=== PATIENT | male | born 1965 | race Caucasian/White ===

== ENCOUNTER 2016-11-05 14:54 | Inpatient (IN) | payer BC ==
[~2016-11-05] VITALS: Ht 160 cm; Wt 91.6 kg
[~2016-11-05 14:54] MED LIST: ATOR40TA PO; CLON1 PO; DULO20 PO; FENO134C PO; LISI-586 PO; LORTA10 PO
[2016-12-04] MEDS ORDERED: BUPIVACAINE HCL PF 0.5% 30 ML VIAL NERV BLOCK ONE (08:44)
--- NOTE | 2016-12-04 09:00 | MH ---
cc: ROZ THOMPSON M.D. DATE OF ADMISSION 12/04/2016 DIAGNOSIS End stage post-traumatic osteoarthritis left knee. PROPOSED SURGERY Left total knee replacement arthroplasty. ALLERGIES None MEDICATIONS 1. He takes medications for high blood pressure and cholesterol. 2. He has been taking Hydrocodone as needed for pain. PAST SURGICAL HISTORY 1. ACL reconstruction left knee 20 years ago and he has had problems with the since then. 2. Arthroscopic rotator cuff repair right shoulder about 4-5 years ago. 3. Chronic back and neck pain. PAST HISTORY 1. History of anxiety. 2. High blood pressure 3. Arthritis 4. Low back pain 5. 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 The patient now going to undergo total knee replacement arthroplasty. The diagnosis, the treatment, the prognosis and the potential risks, hazards, complications and expected results have all been discussed with the patient. Informed consent obtained. No guarantees made. Details of informed consent documented on the hospital office record. PHYSICAL EXAM Physical examination reveals that he is 5 foot 3-1/2 inches tall and 185 pounds. VITAL SIGNS: Stable. HEAD, EYES, EARS, NOSE, AND THROAT: The head is normocephalic. Pupils react to light. Face symmetrical. HEART: Regular rhythm. No murmurs. LUNGS: Clear to auscultation. ABDOMEN: Soft and supple. EXTREMITIES: Left knee reveals some faint scars of previous arthroscopic ACL reconstruction. There is obvious varus deformity with tenderness over the medial joint line. No crepitus noted. No obvious instability. He has about 120 degrees of flexion. There is no neurovascular deficit in the left foot. X-rays revealed that he has mental interference screws which most likely would have to be removed at the time of surgery. Possible difficulties with doing that discussed with the patient. MD RENE Calvo/ADAM /8:47 AM /8:54 AM
[2016-12-04] MEDS ORDERED: METOPROLOL TARTRATE 25 MG TAB PO PRN (10:00)
[2016-12-04] MEDS ORDERED: SODIUM CHLORID 0.9% 500 ML IV PRN (10:00)
[2016-12-04] MEDS ORDERED: INSULIN HUMAN REGULAR 1,000 UNITS/10 ML VIAL SQ PRN (10:00)
[2016-12-04] MEDS ORDERED: CHLORHEXIDINE GLUCONATE 2 % 1 PACK (2 CLOTHS) TOPICAL PRN (10:00)
[2016-12-04] MEDS ORDERED: LACTATED RINGER'S 1000 ML IV PRN (10:00)
[2016-12-04] MEDS ORDERED: POVIDONE IODINE 5% (ANTISEPSIS KIT) 4 APPLICATIONS EACH NARE PRN (10:00)
[2016-12-04] MEDS ORDERED: POVIDONE IODINE 7.5% SCRUB 118 ML BOTTLE TOPICAL SCH (10:15)
[2016-12-04] MEDS ORDERED: ceFAZolin 2 GM PREMIX 50 ML IV SCH (10:15)
[2016-12-04] MEDS ORDERED: VANCOMYCIN 1250 MG/NS 250 ML (for 70-84 kg) IV SCH ×2 (10:15)
[2016-12-04 11:02] VITALS: BP 108/67; PULSE 86; RESP 20; TEMP 99.3; O2SAT 97
[2016-12-04] MEDS ORDERED: FENO134C PO (11:11)
[2016-12-04] MEDS ORDERED: HYDR-3583 PO (11:11)
[2016-12-04] MEDS ORDERED: CLON1TAB PO (11:11)
[2016-12-04] MEDS ORDERED: LISI20TA PO (11:11)
[2016-12-04] MEDS ORDERED: ATOR40TA16 PO (11:11)
[2016-12-04] MEDS ORDERED: DICL75TA PO (11:12)
[2016-12-04] MEDS ORDERED: TRANEXAMIC ACID INJ 780 MG in SODIUM CHLORIDE 0.9% INJ 100 ML IV SCH ×2 (11:30→14:30)
[2016-12-04] MEDS ORDERED: ACETAMINOPHEN 1000 MG/100 ML VIAL IV ONE (11:50)
[2016-12-04] MEDS ORDERED: NEOSTIGMINE 3 MG/3 ML SYR IV ONE (12:00)
[2016-12-04] MEDS ORDERED: ePHEDrine/NS 25 MG/5 ML SYR IV ONE (12:00)
[2016-12-04] MEDS ORDERED: PROPOFOL 200 MG/20 ML AMP IV ONE (12:00)
[2016-12-04] MEDS ORDERED: ONDANSETRON HCL 4 MG/2 ML VIAL IV PUSH ONE (12:00)
[2016-12-04] MEDS ORDERED: LACTATED RINGER'S 1000 ML INJ 2,000 ML IV ONE (12:00)
[2016-12-04] MEDS ORDERED: ROPIVACAINE PERI-ARTICULAR INJECTION. P-ARTICULR SCH ×5 (12:00)
[2016-12-04] MEDS ORDERED: PHENYLEPH/NS 1000 MCG/10 ML SYR IV ONE (12:00)
[2016-12-04] MEDS ORDERED: DEXAMETHASONE SOD PHOS 4 MG/ML VIAL ONE (12:07)
[2016-12-04] MEDS ORDERED: MIDAZOLAM HCL 2 MG/2 ML VIAL ONE (12:07)
[2016-12-04] MEDS ORDERED: fentaNYL CITRATE 250 MCG/5 ML AMP ONE ×2 (12:10→16:40)
[2016-12-04] MEDS ORDERED: GENTAMICIN SULFATE 80 MG/2 ML VIAL ONE (12:12)
[2016-12-04] MEDS ORDERED: TOBRAMYCIN SULFATE 1200 MG VIAL ONE (12:12)
[2016-12-04] MEDS ORDERED: HYDROmorphone HCL PF 2 MG/ML VIAL ONE (14:51)
[2016-12-04] MEDS ORDERED: TOBRAMYCIN SULFATE 1200 MG VIAL OTHER ONE (15:19)
[2016-12-04] MEDS ORDERED: TRANEXAMIC ACID INJ 0 MG in SODIUM CHLORIDE 0.9% INJ 100 ML IV SCH (16:00)
[2016-12-04] MEDS ORDERED: MORPHINE SULFATE 30 MG/30 ML PCA IV SCH (16:00)
[2016-12-04] MEDS ORDERED: NALOXONE HCL 0.4 MG/ML AMP IV PRN (16:00)
[2016-12-04] MEDS ORDERED: ACETAMINOPHEN/HYDROcodone 325 MG/5 MG TAB PO PRN (16:00)
[2016-12-04] MEDS ORDERED: SODIUM CHLORIDE 0.9% FLUSH 5 ML FLUSH IVF PRN (16:00)
[2016-12-04] MEDS ORDERED: TEMAZEPAM 15 MG CAP PO PRN (16:00)
[2016-12-04] MEDS ORDERED: diphenhydrAMINE HCL 50 MG/ML VIAL IV PRN (16:00)
[2016-12-04] MEDS ORDERED: ONDANSETRON HCL 4 MG/2 ML VIAL IVP PRN (16:00)
[2016-12-04] MEDS ORDERED: Post-op Orders (for Pharmacy) MISC XX ONE (16:00)
[2016-12-04] MEDS ORDERED: ENOX30P SQ (16:08)
[2016-12-04] MEDS ORDERED: HYDR-3516 PO (16:08)
--- NOTE | 2016-12-04 16:09 | HHI.FF ---
Face to Face Verification Diagnosis: (1) Total knee replacement status Physical Therapy Gait training Left LE Weight Bearing: WB as tolerated Nursing Nursing: Jodie teaching, Dressing changes Dressing Changes: Daily dressing change, Coverderm/Primapore I have seen patient Elroy Portillo on 12/04/16. My clinical findings support the need for the requested home health care services because: Limited ability to care for self Injectable med education/admin I certify that my clinical findings support that this patient is homebound because: Unsafe to leave home unassisted Unable to use public transportation Koby Romero MD Dec 04, 2016 16:09
[2016-12-04] MEDS: SODIUM CHLOR 0.9% 1000 ML INJ 1,000 ML IV SCH (16:30)
[2016-12-04] MEDS ORDERED: DO NOT ADM ANY ANTICOAGULANT DRUGS PRN (16:45)
--- NOTE | 2016-12-04 16:58 | RADRPT ---
EXAM DATE/TIME: 12/04/2016 16:37 [facility] COMPARISON: No previous studies available for comparison. INDICATIONS : Post op total left knee replacement. MEDICAL HISTORY : None. SURGICAL HISTORY : Previous left knee surgery. ENCOUNTER: Initial ACUITY: 1 day PAIN SCORE: Non-responsive. LOCATION: Left knee. FINDINGS: 2 views of the knee show a total knee prosthesis in good position. No fracture or dislocation is obse rved. Soft tissue swelling is noted. Surgical drain noted. Anchoring screw from presumed prior crucia te ligament repair. CONCLUSION: Total knee arthroplasty in good position. Jeet Perez Jr., MD on December 04, 2016 at 16:52 Board Certified Radiologist. This report was verified electronically.
[2016-12-04] MEDS: KETOROLAC TROMETHAMINE 30 MG/ML (IVP) VIAL IVP SCH (17:24)
[2016-12-04] MEDS: ceFAZolin 2 GM PREMIX 50 ML IV SCH (17:50)
[2016-12-04] MEDS ORDERED: ceFAZolin INJ 2 MG in SODIUM CHLORIDE 0.9% INJ 100 ML IV SCH (18:00)
[2016-12-04] MEDS: ACETAMINOPHEN/HYDROcodone 325 MG/5 MG TAB PO PRN (19:00)
[2016-12-04] MEDS: SODIUM CHLORIDE 0.9% FLUSH 5 ML FLUSH IVF SCH (20:48)
[2016-12-04 22:39] VITALS: BP 105/66; PULSE 80; RESP 18; TEMP 97; O2SAT 96
[2016-12-04] MEDS: ACETAMINOPHEN 1000 MG/100 ML VIAL IV SCH (22:58)
[2016-12-04] MEDS: clonazePAM 1 MG TAB PO SCH (22:58)
[2016-12-04] MEDS: CELECOXIB 200 MG CAP PO SCH (22:59)
[2016-12-04] MEDS: ATORVASTATIN 40 MG TAB PO SCH (22:59)
[2016-12-05] MEDS: KETOROLAC TROMETHAMINE 30 MG/ML (IVP) VIAL IVP SCH ×3 (01:13→16:30)
[2016-12-05] MEDS: SODIUM CHLOR 0.9% 1000 ML INJ 1,000 ML IV SCH ×3 (01:14→21:56)
[2016-12-05] MEDS: ceFAZolin 2 GM PREMIX 50 ML IV SCH ×2 (01:14→10:50)
[2016-12-05] MEDS ORDERED: VANCOMYCIN INJ 1.25 GM in SODIUM CHLOR 0.9% 250 ML INJ 250 ML IV SCH (03:00)
[2016-12-05] MEDS ORDERED: PCA - TOTAL MG MORPHINE DELIVERED PER SHIFT IV ONE ×2 (03:00→08:00)
[2016-12-05 04:00] VITALS: BP 100/61; PULSE 78; RESP 19; TEMP 96.6; O2SAT 98
[2016-12-05 07:58] VITALS: BP 104/59; PULSE 84; RESP 19; TEMP 96.9; O2SAT 100
[2016-12-05] MEDS: HYDROCHLOROTHIAZIDE 25 MG TAB PO SCH (09:00)
[2016-12-05] MEDS: SODIUM CHLORIDE 0.9% FLUSH 5 ML FLUSH IVF SCH ×2 (09:00→20:38)
[2016-12-05] MEDS ORDERED: NON-FORMULARY DRUG (Lisinopril-Hctz 1 TAB) PO SCH (09:00)
[2016-12-05] MEDS: LISINOPRIL 20 MG TAB PO SCH (09:00)
[2016-12-05 09:12] LABS: HEMATOCRIT 30.9 % (39.0-51.0); REVIEW FLAG FINAL
[2016-12-05] MEDS: FENOFIBRATE 145 MG TAB PO SCH (09:20)
[2016-12-05] MEDS: clonazePAM 1 MG TAB PO SCH ×2 (09:20→20:36)
[2016-12-05] MEDS: ACETAMINOPHEN 1000 MG/100 ML VIAL IV SCH ×2 (09:33→21:48)
[2016-12-05] MEDS: ACETAMINOPHEN/HYDROcodone 325 MG/5 MG TAB PO PRN ×4 (09:33→21:49)
[2016-12-05 09:44] LABS: BICARBONATE 22.4 MEQ/L (21.0-32.0); POTASSIUM 4.3 MEQ/L (3.5-5.1)
[2016-12-05 11:55] VITALS: BP 102/61; PULSE 77; RESP 19; TEMP 97.2; O2SAT 97
--- NOTE | 2016-12-05 12:54 | MP ---
cc: ROZ THOMPSON M.D. DATE OF SURGERY 12/04/2016 PREOPERATIVE DIAGNOSIS Post-traumatic osteoarthritis left knee POSTOPERATIVE DIAGNOSIS Post-traumatic osteoarthritis left knee OPERATIVE PROCEDURE 1. Removal of interference screw left knee from the tibia 2. Total knee replacement arthroplasty left knee using [employer] components femur 65 mm left, tibia 71 mm with cruciate stem and polyethylene 12-mm flat. Patella was not resurfaced. TECHNIQUE After induction of general anesthesia with endotracheal intubation, the left lower extremity thoroughly prepped with alcohol and ChloraPrep and draped in routine fashion. After application of Esmarch bandage, tourniquet was inflated to 250 mmHg. A midline skin incision was made which was deviated more medially at the tibial tubercle to prevent pressure when kneeling. Incision deepened through the subcutaneous tissue including some scar tissue distally. Limited subperiosteal dissection on the medial side of the tibia was carried out excising osteophytes at the same time. The knee was flexed and femoral canal opened anterior to the posterior cruciate ligament. There was impingement with the interference screw in the femur. Distal cut was made at 5 degrees valgus. Adequate bone was removed. External tibial guide was used to osteotomized the proximal end of the tibia 4 mm from the lower most portion of the medial tibial plateau and this cut did not also involve the interference screw at this time. AP femoral guide was used. Epicondylar axis was drawn and the AP guide set appropriately and a 65 mm cutting block was used to do the AP and chamfer cuts. The knee was checked. There was tightness in flexion and slight tightness in extension at this point. The tibial surface was checked and some excess bone removed from the lateral side. It was obvious at this time that we had to take out the interference screw from the tibia because there was no way to put the tibial implant in otherwise. I did go ahead and do the ligament balancing at this point releasing the medial tissues all the way to the posterior medial corner and excising osteophytes at the same time, semimembranosus attachment was also released. The pes anserinus was released and distally about 1 cm. The superficial medial collateral ligament was preserved throughout. The proximal end of the interference screw was identified after curetting some of the cancellous bone. A drill was used to open the cannulation and a wire was passed through the cannulation to exit on the cortical side. A trephine was now used distal to proximal, but we were not able to get a screw vacuum truck driver to fit on this screw, therefore it was decided to use the trephine from proximal and with minimal loss of bone, the screw was removed. Further preparation of the tibial surface was carried out. The trial implants were placed and once again it appears it is tight both in flexion and extension, therefore about 3 extra millimeters of tibia was excised, alignment was checked and now trial reduction looks good with a 12-mm insert in flexion, mid flexion and extension. There is mild/minimal lateral joint opening in full extension which is to be expected with this type of knee. Once we were satisfied with the cuts, the anchoring holes made for the femur. Trial implants were removed. The bony surfaces were thoroughly lavaged and dried and a mixture of Bupivacaine, clonidine, epinephrine and Toradol instilled into the periarticular tissues. Bony surfaces were thoroughly lavaged and dried and using two units of Palacos cement with 1200 mg of tobramycin in it, the tibial implant was placed first in satisfactory external rotation, followed by the femoral implant and then extending the knee with a 12-mm insert. All excess cement was removed. The tourniquet was deflated once cement solidified. Position and alignment were checked. The joint was checked. Trial implants removed and the joint lavaged and suctioned out. A 12 mm actual polyethylene insert was placed and clipped. 18 inch Hemovac drain left in the depths of wound and the knee was closed with the capsule and the retinaculum closed with about four interrupted #2 Vicryl sutures and the rest with #2 running quill sutures, subcutaneous tissue with 2-0 Vicryl sutures. Skin with 3-0 subcuticular quill and Steri-Strips. Dressings were applied with Xeroform, 4x4s, ABD, Sof-Rol and Dillon bandage incorporating ice bladder. The patient tolerated the procedure well. TRANSFUSIONS AND COMPLICATIONS None TOTAL TOURNIQUET TIME 88 minutes, but we released the tourniquet during the process of removing the interference screw and it was reinflated after the trial implants were placed and using Esmarch bandage again. MD RENE Calvo/ADAM /4:19 PM /12:41 PM
--- NOTE | 2016-12-05 13:58 | PD.ORT.PN ---
Subjective Post Op Day #: 1 Pain Scale: 3 Subjective Remarks good Objective Vitals Last 72 hours Impressions Knee X-Ray 12/04/16 0000 Signed Impressions: Service Date/Time: Sunday, December 04, 2016 16:37 - CONCLUSION: Total knee arthroplasty in good position. Jeet Perez Jr., MD Vital Signs Date Time Temp Pulse Resp B/P Pulse Ox O2 Delivery O2 Flow Rate FiO2 12/05/16 11:55 97.2 77 19 102/61 97 12/05/16 07:58 96.9 84 19 104/59 100 12/05/16 05:12 18 12/05/16 04:00 96.6 78 19 100/61 98 12/05/16 03:01 18 12/04/16 23:22 Room Air 12/04/16 22:39 97.0 80 18 105/66 96 12/04/16 21:48 78 16 114/68 96 Room Air 12/04/16 20:47 14 12/04/16 20:00 92 14 111/67 95 Nasal Cannula 2 12/04/16 20:00 97.7 77 16 111/67 97 Room Air 12/04/16 19:00 81 22 93/50 97 Nasal Cannula 2 12/04/16 18:00 95 15 92/55 99 Nasal Cannula 2 12/04/16 17:45 90 21 93/54 97 Nasal Cannula 2 12/04/16 17:30 91 13 96/58 97 Nasal Cannula 2 12/04/16 17:15 94 13 97/56 99 Nasal Cannula 2 12/04/16 17:04 15 12/04/16 17:00 90 13 88/50 97 Nasal Cannula 2 12/04/16 16:52 104 13 80/45 95 12/04/16 16:45 111 13 89/50 97 Nasal Cannula 2 12/04/16 16:30 112 15 94/47 98 Nasal Cannula 2 12/04/16 16:25 98.1 122 19 111/51 98 Nasal Cannula 2 I/O 12/04/16 12/04/16 12/04/16 12/05/16 12/05/16 12/05/16 07:00 15:00 23:00 07:00 15:00 23:00 Intake Total 3364 ml 1850 ml Output Total 300 ml 150 ml Balance 3064 ml 1700 ml Intake Oral 200 ml 780 ml IV Total 964 ml 1070 ml Other 2200 ml Output Urine Total 100 ml Drainage Total 150 ml Estimated Blood Loss 200 ml # Voids 3 # Bowel Movements 0 Result Diagram: 12/05/1645 12/05/1645 Objective Remarks A,A, and O Moves warm tos well able todo quads and SLR very well Assessment & Plan Ortho Post Op Day #: 1 Problem List: Assessment and Plan DC drain; nurse advised DC tomorrow with [facility] Koby Romero MD Dec 05, 2016 13:58
[2016-12-05] MEDS: ENOXAPARIN SODIUM 30 MG/0.3 ML SYRINGE SQ SCH (15:35)
[2016-12-05 15:36] VITALS: BP 103/55; PULSE 84; RESP 17; TEMP 96.4; O2SAT 99
[2016-12-05 19:00] VITALS: BP 128/69; PULSE 87; RESP 16; TEMP 96.8; O2SAT 99
[2016-12-05] MEDS: ATORVASTATIN 40 MG TAB PO SCH (20:36)
[2016-12-05] MEDS: DOCUSATE SODIUM 100 MG CAP PO SCH (20:36)
[2016-12-05] MEDS: CELECOXIB 200 MG CAP PO SCH (20:36)
[2016-12-06] MEDS: ACETAMINOPHEN/HYDROcodone 325 MG/5 MG TAB PO PRN ×4 (01:46→15:02)
[2016-12-06] MEDS: KETOROLAC TROMETHAMINE 30 MG/ML (IVP) VIAL IVP SCH ×2 (01:49→08:18)
[2016-12-06 07:37] VITALS: BP 135/81; PULSE 81; RESP 17; TEMP 95.2; O2SAT 100
[2016-12-06] MEDS: SODIUM CHLOR 0.9% 1000 ML INJ 1,000 ML IV SCH (07:56)
[2016-12-06] MEDS: ACETAMINOPHEN 1000 MG/100 ML VIAL IV SCH (08:17)
[2016-12-06] MEDS: clonazePAM 1 MG TAB PO SCH (08:18)
[2016-12-06] MEDS: FENOFIBRATE 145 MG TAB PO SCH (08:18)
[2016-12-06] MEDS: DOCUSATE SODIUM 100 MG CAP PO SCH (08:18)
[2016-12-06] MEDS: HYDROCHLOROTHIAZIDE 25 MG TAB PO SCH (08:19)
[2016-12-06] MEDS: SODIUM CHLORIDE 0.9% FLUSH 5 ML FLUSH IVF SCH (08:19)
[2016-12-06] MEDS: LISINOPRIL 20 MG TAB PO SCH (08:19)
--- NOTE | 2016-12-06 10:09 | PD.ORT.PN ---
Subjective Post Op Day #: 2 Pain Scale: 5 Subjective Remarks good, trying to take a nap Objective Vitals Vital Signs Date Time Temp Pulse Resp B/P Pulse Ox O2 Delivery O2 Flow Rate FiO2 12/06/16 07:37 95.2 81 17 135/81 100 12/05/16 20:00 99 Room Air 12/05/16 19:00 96.8 87 16 128/69 99 12/05/16 15:36 96.4 84 17 103/55 99 12/05/16 11:55 97.2 77 19 102/61 97 I/O 12/05/16 12/05/16 12/05/16 12/06/16 12/06/16 12/06/16 07:00 15:00 23:00 07:00 15:00 23:00 Intake Total 1850 ml 782 ml 360 ml 480 ml Output Total 150 ml 130 ml Balance 1700 ml 782 ml 230 ml 480 ml Intake Oral 780 ml 650 ml 360 ml 480 ml IV Total 1070 ml 132 ml Drainage Total 150 ml 130 ml # Voids 3 2 2 3 # Bowel Movements 0 0 0 Result Diagram: 12/05/16 0845 12/05/16 0845 Objective Remarks A,A, and O Moves warm tos well able todo quads and SLR very well Drain out, ice machine on Assessment & Plan Ortho Post Op Day #: 2 Problem List: Assessment and Plan Dc today. Rxs and follow up and C discussed Koby Romero MD Dec 06, 2016 10:09
[2016-12-06] MEDS ORDERED: COMMODE 3-IN-11 MIS (10:12)
[2016-12-06] MEDS ORDERED: WALKER WHEELS/F1 MIS (10:12)
[2016-12-06 12:00] VITALS: BP 111/56; PULSE 86; RESP 17; TEMP 97.2; O2SAT 99
[2016-12-06] MEDS: ENOXAPARIN SODIUM 30 MG/0.3 ML SYRINGE SQ SCH (15:08)
--- NOTE | 2016-12-08 19:15 | MD ---
cc: ROZ THOMPSON ADMISSION DATE: 12/04/2016 DISCHARGE DATE: 12/06/2016 ADMISSION DIAGNOSIS Post-traumatic osteoarthritis left knee. DISCHARGE DIAGNOSIS Post-traumatic osteoarthritis left knee. HISTORY OF THE PRESENT ILLNESS History consists of a knee injury several years ago necessitating anterior cruciate ligament reconstruction. He has had problems on and off since then but particularly bad last few years and has been noted to have [id number] in the medial compartment. 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 After appropriate preoperative workup he was admitted to the hospital and on the day of surgery had total knee replacement arthroplasty performed of the left knee. Postoperative course was uneventful. The patient was kept on routine protocol for pain management, prophylactic antibiotics and prophylaxis of the VTE, etc. He is ambulating. He is able to lift his leg up. He is able to bend his knee and is able to do quadriceps isometrics. He is afebrile. Patient discharged with prescription for hydrocodone 5 one to two q.4h as needed for pain, #90. And Lovenox 30 mg subcu daily for 14 days. He has a follow-up appointment to see me 12 days post surgery. CONDITION Discharge condition stable. PROGNOSIS Good. MD RENE Calvo/MARIEL /10:20 AM /7:02 PM
== END 2016-12-06 16:27 | disposition home health service (06) | DRG 470 ==
LOC: HSDI 12-04 09:40 → N06A 12-04 22:04
PROVIDERS: ADMIT Orthopaedic Surgery; ATTEND Orthopaedic Surgery
PROC: 0QPH04Z Removal of Internal Fixation Device from Left Tibia, Open Approach (ICD-10-PCS; 2016-12-04)
PROC: 0SRD0J9 Replacement of Left Knee Joint with Synthetic Substitute, Cemented, Open Approach (ICD-10-PCS; principal; 2016-12-04 12:24)
DX: M17.32 Unilateral post-traumatic osteoarthritis, left knee (principal); I10 Essential (primary) hypertension; E78.5 Hyperlipidemia, unspecified; F41.9 Anxiety disorder, unspecified; M17.11 Unilateral primary osteoarthritis, right knee
CPT/HCPCS: 73560; 80048; 85014; 85018; 86850; 86900; 86901; 94150; C1776; J0131; J0171; J0690; J0735; J1100; J1170; J1580; J1650; J1885; J2250; J2270; J2370; J2405; J2710; J2795; J3010; J3260; J3370; J7030; J7050; J7120; L1830

== ENCOUNTER → 2016-11-11 | Outpatient (CLI) | payer BC ==
[2016-11-11 08:15] LABS: BASOPHIL % 0.4 % (0.0-2.0); EOSINOPHIL # 0.2 TH/MM3 (0-0.4); HEMATOCRIT 43.3 % (39.0-51.0); HEMO FLAGS DIFF FINAL; LYMPH % 25.4 % (9.0-44.0); MEAN CELL VOLUME 90.8 FL (80.0-100.0); MONO % 8.3 % (0.0-8.0); NEUT % 63.9 % (16.0-70.0); PLATELET COUNT 286 TH/MM3 (150-450); RED BLOOD COUNT 4.77 MIL/MM3 (4.50-5.90); RED CELL DISTRIBUTION WIDTH 12.9 % (11.6-17.2); WHITE BLOOD COUNT 7.8 TH/MM3 (4.0-11.0)
[2016-11-11 08:28] LABS: APTT (PATIENT) 26.4 SEC (24.3-30.1); PROTHROMBIN TIME - PATIENT 11.2 SEC (9.8-11.6)
[2016-11-11 08:47] LABS: ALT (GPT) 29 U/L (12-78); ANION GAP 5 MEQ/L (5-15); AST (GOT) 11 U/L (15-37); BICARBONATE 28.6 MEQ/L (21.0-32.0); BLOOD UREA NITROGEN 17 MG/DL (7-18); CHLORIDE 102 MEQ/L (98-107); GLOMERULAR FILTRATION RATE 126 ML/MIN (>89); GLUCOSE,FASTING 94 MG/DL (74-99); POTASSIUM 4.1 MEQ/L (3.5-5.1); SODIUM (NA) 136 MEQ/L (136-145)
[2016-11-11 08:48] LABS: ALKALINE PHOSPHATASE 44 U/L (45-117); TOTAL BILIRUBIN ADULT 0.5 MG/DL (0.2-1.0)
[2016-11-11 09:10] LABS: BLOOD, URINE NEG (NEG); COMMENT (UR) CULT NOT INDICATED; CULTURE IF INDICATED CULT NOT INDICATED; GLUCOSE,URINE NEG (NEG); KETONE, URINE NEG (NEG); MUCUS URINE FEW /lpf (OCC); NITRITE,URINE NEG (NEG); PH, URINE 6.5 (5.0-8.5); URINE COLOR LIGHT-YELLOW (YELLW/STRAW)
--- NOTE | 2016-11-11 14:25 | EKG ---
Date Performed: 11/11/2016 Time Performed: 08:17:00 PTAGE: 51 years EKG: Sinus rhythm LOW QRS VOLTAGE IN PRECORDIAL LEADS MINIMAL VOLTAGE CRITERIA FOR LVH, CONSIDER NORMAL VARIANT Since previous tracing, no significant change noted BORDERLINE ECG PREVIOUS TRACING : 07/28/2013 10.12.42 DOCTOR: Gautam Sorto Interpretating Date/Time 11/11/2016 14:21:44
== END ==
LOC: CPRE 07:31
PROVIDERS: ATTEND Orthopaedic Surgery
DX: Z01.812 Encounter for preprocedural laboratory examination (principal); Z01.810 Encounter for preprocedural cardiovascular examination; R94.31 Abnormal electrocardiogram [ECG] [EKG]
CPT/HCPCS: 36415; 80053; 81001; 85025; 85610; 85730; 93005

== ENCOUNTER 2017-01-22 05:48 | Inpatient (IN) | payer BC ==
[~2017-01-22] VITALS: Ht 160 cm; Wt 86.4 kg
[~2017-01-22 05:48] MED LIST changes: -ATOR40TA PO; +ATOR40TA16 PO; -CLON1 PO; +CLON1TAB PO; +COMMODE 3-IN-11 MIS; -DULO20 PO; +ENOX30P SQ; +HYDR-3516 PO; -LISI-586 PO; +LISI20TA PO; -LORTA10 PO; +WALKER WHEELS/F1 MIS
[2017-01-22] MEDS ORDERED: TOBRAMYCIN SULFATE 1200 MG VIAL ONE (06:19)
[2017-01-22] MEDS ORDERED: LACTATED RINGER'S 1000 ML IV PRN (06:30)
[2017-01-22] MEDS ORDERED: METOPROLOL TARTRATE 25 MG TAB PO PRN (06:30)
[2017-01-22] MEDS ORDERED: INSULIN HUMAN REGULAR 1,000 UNITS/10 ML VIAL SQ PRN (06:30)
[2017-01-22] MEDS ORDERED: POVIDONE IODINE 7.5% SCRUB 118 ML BOTTLE TOPICAL SCH (06:30)
[2017-01-22] MEDS ORDERED: POVIDONE IODINE 5% (ANTISEPSIS KIT) 4 APPLICATIONS EACH NARE PRN (06:30)
[2017-01-22] MEDS ORDERED: CHLORHEXIDINE GLUCONATE 2 % 1 PACK (2 CLOTHS) TOPICAL PRN (06:30)
[2017-01-22] MEDS ORDERED: SODIUM CHLORID 0.9% 500 ML IV PRN (06:30)
[2017-01-22] MEDS: ceFAZolin 2 GM PREMIX 50 ML IV SCH ×3 (06:45→20:40)
[2017-01-22] MEDS: VANCOMYCIN 1250 MG/NS 250 ML (for 70-84 kg) IV SCH ×4 (07:05→08:15)
[2017-01-22] MEDS ORDERED: MIDAZOLAM HCL 2 MG/2 ML VIAL ONE ×2 (07:14→10:15)
[2017-01-22] MEDS ORDERED: FAMOTIDINE 20 MG/2 ML VIAL ONE (07:15)
[2017-01-22] MEDS ORDERED: ACETAMINOPHEN 1000 MG/100 ML 100 ML IV ONE (07:17)
[2017-01-22] MEDS ORDERED: TRANEXAMIC ACID INJ 841 MG in SODIUM CHLORIDE 0.9% INJ 100 ML IV SCH ×2 (07:30→10:30)
[2017-01-22] MEDS ORDERED: GENTAMICIN SULFATE 80 MG/2 ML VIAL IRRIGATION ONE (08:17)
[2017-01-22] MEDS ORDERED: ONDANSETRON HCL 4 MG/2 ML VIAL IV PUSH ONE (08:55)
[2017-01-22] MEDS ORDERED: PROPOFOL 200 MG/20 ML AMP IV ONE (08:55)
[2017-01-22] MEDS ORDERED: LACTATED RINGER'S 1000 ML INJ 1,000 ML IV ONE (08:55)
[2017-01-22] MEDS ORDERED: BUPIVACAINE LIPOSOME PF 1.3% 20 ML VIAL ONE (09:37)
[2017-01-22] MEDS ORDERED: DO NOT ADM ANY ANTICOAGULANT DRUGS PRN (10:08)
[2017-01-22] MEDS: SODIUM CHLOR 0.9% 1000 ML INJ 1,000 ML IV SCH ×2 (10:14→20:12)
[2017-01-22] MEDS ORDERED: traMADol HCL 50 MG TAB PO PRN (10:15)
[2017-01-22] MEDS ORDERED: diphenhydrAMINE HCL 50 MG/ML VIAL IV PRN (10:15)
[2017-01-22] MEDS ORDERED: NALOXONE HCL 0.4 MG/ML AMP IV PRN (10:15)
[2017-01-22] MEDS ORDERED: TRANEXAMIC ACID INJ 0 MG in SODIUM CHLORIDE 0.9% INJ 100 ML IV SCH (10:15)
[2017-01-22] MEDS ORDERED: ONDANSETRON HCL 4 MG/2 ML VIAL IVP PRN (10:15)
[2017-01-22] MEDS ORDERED: SODIUM CHLORIDE 0.9% FLUSH 5 ML FLUSH IVF PRN (10:15)
[2017-01-22] MEDS ORDERED: Post-op Orders (for Pharmacy) MISC XX ONE (10:15)
[2017-01-22] MEDS ORDERED: MORPHINE SULFATE 4 MG/ML INJ ONE (10:15)
[2017-01-22] MEDS ORDERED: TEMAZEPAM 15 MG CAP PO PRN (10:15)
[2017-01-22] MEDS: ROPIVACAINE PERI-ARTICULAR INJECTION. P-ARTICULR SCH ×10 (10:15→10:50)
[2017-01-22] MEDS ORDERED: XARE10TA PO (10:25)
[2017-01-22] MEDS ORDERED: HYDR-3516 PO (10:25)
--- NOTE | 2017-01-22 10:27 | HHI.FF ---
Face to Face Verification Diagnosis: (1) Total knee replacement status Physical Therapy Gait training Knee: Total knee, Protocol: Right Right LE Weight Bearing: WB as tolerated Nursing Nursing: Dressing changes Dressing Changes: Daily dressing change, Coverderm/Primapore I have seen patient Elroy Portillo on 01/22/17. My clinical findings support the need for the requested home health care services because: Med compliance is questionable Limited ability to care for self I certify that my clinical findings support that this patient is homebound because: Unable to use public transportation Koby Romero MD Jan 22, 2017 10:27
[2017-01-22] MEDS ORDERED: *morphine SULFATE 8 MG/ML PERIprocedure ONLY ONE ×2 (10:45→13:23)
--- NOTE | 2017-01-22 11:12 | MP ---
cc: ROZ ROMERO DATE OF SURGERY 01/22/2017 PREOPERATIVE DIAGNOSIS Osteoarthritis right knee POSTOPERATIVE DIAGNOSIS Osteoarthritis right knee OPERATIVE PROCEDURE Total knee replacement arthroplasty right knee using [employer] components. Femur 65 mm right Tibia 71 mm with I-beam stem 12 mm standard tibial insert Patella was not resurfaced SURGEON Dr. Romero ANESTHESIA General TECHNIQUE After induction of general anesthesia and abductor canal block, the patient's right lower extremity was thoroughly prepped with alcohol and ChloraPrep and draped in routine fashion including Ioban adherent drapes. A vertical incision slightly medial to midline was made deepened through the subcutaneous tissue and medial parapatellar arthrotomy incision was carried out. The soft tissues were released off of the tibial condyle medially, preserving the superficial medial ligament. Osteophytes were excised. The knee was flexed and femoral canal opened anterior to the posterior cruciate ligament and the distal femoral cutting guide set at 5 degrees was used to do the distal femoral cuts. Proximal tibial cut was made using the external tibial guide with a slight posterior inclination, taking 4 mm from the lower most portion of the medial tibial plateau. AP guide was used marking the epicondyles and the white sized line and measurement and we went for the +2 marking on the drill holes. A 65 mm cutting guide was used to do the AP and chamfer cuts. Clean-up cut was made on the tibia and debridement and was carried out. The posterior condyles were checked. Additional release of soft tissue posterior medially was carried out. The spacer block was used and a 10 mm spacer block fits nicely in flexion and extension with no instability. Tibia was prepared to receive the trial and the trial implants were placed and with a 10-mm insert and then a 12-mm insert and there is good extension, good flexion and no instability. Patella was examined. There was grade 3 chondromalacia in the central portion, but no exposed bone. Osteophytes were excised. Given his age, it was decided not to resurface the patella. Bony surfaces were thoroughly lavaged and dried. A mixture of ropivacaine, clonidine, epinephrine and Toradol was injected periarticularly. The femoral canal plugged with bone. Using two units of simplex cement with 1200 mg Nafcin in it, the tibial implant was cemented first, excess cement removed and then the femoral implant, excess cement removed, the knee was extended with a 12 mm insert. The tourniquet was released. Once cement solidified, the knee was checked and found to be in satisfactory condition. There was a good range of motion and good stability. Trial insert was removed, the knee was lavaged and a 10-mm polyethylene insert was placed and clipped. Everything was checked and looks good. A solution of 100 mg of saline with 17.5 mL of Betadine was then placed in the joint for five minutes and then suctioned out. Hemovac drain was introduced and closure was carried out with interrupted #2 Vicryl sutures about three of them and then #2 quill. Subcutaneous tissue was closed with 2-0 Vicryl, skin with subcuticular 3-0 quill and Steri-Strips. Dressings were applied with Xeroform, 4x4s, ABD, ice bladder and Sof-Rol and Dillon bandage. The patient transferred to the recovery room in satisfactory condition. The patient tolerated the procedure well. TRANSFUSIONS AND COMPLICATIONS None POSTOPERATIVE CONDITION Satisfactory PROGNOSIS Good ESTIMATED BLOOD LOSS 50 mL. TOURNIQUET TIME 56 minutes MD RENE Calvo/ADAM /10:28 AM /10:49 AM
--- NOTE | 2017-01-22 11:15 | RADRPT ---
EXAM DATE/TIME: 01/22/2017 10:39 [facility] COMPARISON: No previous studies available for comparison. INDICATIONS : Post op right knee arthroplasty. MEDICAL HISTORY : None. SURGICAL HISTORY : Total knee replacement, left. ENCOUNTER: Initial ACUITY: 1 day PAIN SCORE: Non-responsive. LOCATION: Right knee FINDINGS: Total knee arthroplasty is present. The hardware is intact. Alignment is anatomic. A surgical drain i s present. CONCLUSION: Satisfactory appearance post right TKA Sam Cristobal MD on January 22, 2017 at 11:09 Board Certified Radiologist. This report was verified electronically.
[2017-01-22] MEDS: MORPHINE SULFATE 30 MG/30 ML PCA IV SCH ×2 (11:39→17:51)
[2017-01-22] MEDS: KETOROLAC TROMETHAMINE 30 MG/ML (IVP) VIAL IVP SCH ×2 (11:56→20:11)
[2017-01-22] MEDS ORDERED: ceFAZolin INJ 2 MG in SODIUM CHLORIDE 0.9% INJ 100 ML IV SCH (12:00)
[2017-01-22 16:00] VITALS: BP 100/63; PULSE 72; RESP 16; TEMP 98; O2SAT 98
[2017-01-22 18:12] VITALS: O2SAT 99
[2017-01-22 19:09] VITALS: BP 128/62; PULSE 79; RESP 18; TEMP 97.2; O2SAT 98
[2017-01-22] MEDS: ACETAMINOPHEN 1000 MG/100 ML VIAL IV SCH ×2 (20:10→21:00)
[2017-01-22] MEDS: ACETAMINOPHEN/HYDROcodone 325 MG/5 MG TAB PO PRN (20:11)
[2017-01-22] MEDS: SODIUM CHLORIDE 0.9% FLUSH 5 ML FLUSH IVF SCH (20:11)
[2017-01-22] MEDS ORDERED: VANCOMYCIN INJ 1,500 MG in SODIUM CHLORID 0.9% 500 ML INJ 500 ML IV ONE (23:00)
[2017-01-22] MEDS ORDERED: VANCOMYCIN INJ 1.5 GM in SODIUM CHLOR 0.9% 250 ML INJ 250 ML IV SCH (23:00)
[2017-01-22 23:06] VITALS: BP 128/65; PULSE 70; RESP 18; TEMP 97.7; O2SAT 99
[2017-01-23] MEDS: ACETAMINOPHEN/HYDROcodone 325 MG/5 MG TAB PO PRN ×6 (00:57→23:55)
[2017-01-23 03:03] VITALS: O2SAT 99
[2017-01-23] MEDS: KETOROLAC TROMETHAMINE 30 MG/ML (IVP) VIAL IVP SCH ×3 (03:31→19:46)
[2017-01-23 03:39] VITALS: BP 129/74; PULSE 74; RESP 19; TEMP 96.7; O2SAT 99
[2017-01-23] MEDS: MORPHINE SULFATE 30 MG/30 ML PCA IV SCH (04:34)
[2017-01-23 05:03] LABS: HEMATOCRIT 28.6 % (39.0-51.0); REVIEW FLAG FINAL
[2017-01-23 05:30] LABS: BICARBONATE 26.1 MEQ/L (21.0-32.0); POTASSIUM 4.5 MEQ/L (3.5-5.1)
[2017-01-23] MEDS: ceFAZolin 2 GM PREMIX 50 ML IV SCH (05:32)
[2017-01-23] MEDS: PCA - TOTAL MG MORPHINE DELIVERED PER SHIFT SCH ×3 (05:34→19:49)
[2017-01-23] MEDS: SODIUM CHLOR 0.9% 1000 ML INJ 1,000 ML IV SCH ×3 (06:14→19:49)
[2017-01-23 08:00] VITALS: BP 115/78; PULSE 72; RESP 18; TEMP 96.4; O2SAT 96
[2017-01-23] MEDS: CELECOXIB 200 MG CAP PO SCH (08:51)
[2017-01-23] MEDS: SODIUM CHLORIDE 0.9% FLUSH 5 ML FLUSH IVF SCH ×2 (08:52→19:49)
[2017-01-23] MEDS: RIVAROXABAN 10 MG TAB PO SCH (08:52)
[2017-01-23] MEDS: ACETAMINOPHEN 1000 MG/100 ML VIAL IV SCH ×2 (08:55→19:49)
[2017-01-23] MEDS ORDERED: RIVAROXABAN 10 MG TAB PO SCH (09:00)
[2017-01-23 12:00] VITALS: BP 105/66; PULSE 76; RESP 18; TEMP 96.7; O2SAT 98
--- NOTE | 2017-01-23 15:33 | PD.ORT.PN ---
Subjective Post Op Day #: 1 Pain Scale: 3 Subjective Remarks great Range of Motion 0 to 90 [address] Objective Vitals Last 72 hours Impressions Knee X-Ray 01/22/17 0000 Signed Impressions: Service Date/Time: Sunday, January 22, 2017 10:39 - CONCLUSION: Satisfactory appearance post right TKA Sam Cristobal MD Vital Signs Date Time Temp Pulse Resp B/P (MAP) Pulse Ox O2 Delivery O2 Flow Rate FiO2 01/23/17 14:10 16 01/23/17 12:00 96.7 76 18 105/66 (79) 98 01/23/17 08:00 96.4 72 18 115/78 (90) 96 01/23/17 05:34 17 01/23/17 04:34 18 01/23/17 03:39 96.7 74 19 129/74 (92) 99 01/23/17 03:03 99 01/22/17 23:06 97.7 70 18 128/65 (86) 99 01/22/17 19:09 97.2 79 18 128/62 (84) 98 01/22/17 18:12 99 21 01/22/17 18:12 99 21 01/22/17 17:51 15 01/22/17 16:00 98.0 72 16 100/63 (75) 98 I/O 01/22/17 01/22/17 01/22/17 01/23/17 01/23/17 01/23/17 07:00 15:00 23:00 07:00 15:00 23:00 Intake Total 50 ml 1674 ml 1258 ml 2720 ml Output Total 3700 ml 85 ml 70 ml Balance 50 ml -2026 ml 1173 ml 2650 ml Intake Oral 360 ml 360 ml IV Total 50 ml 1674 ml 898 ml 2360 ml Output Urine Total 650 ml Drainage Total 85 ml 70 ml Estimated Blood Loss 50 ml Other 3000 ml # Voids 2 3 # Bowel Movements 0 0 Result Diagram: 01/23/1744201/23/17442 Objective Remarks comfortable. freely moving knee, moves toes well Assessment & Plan Ortho Post Op Day #: 1 Problem List: Assessment and Plan doing well post TKA right Koby Romero MD Jan 23, 2017 15:33
[2017-01-23 16:00] VITALS: BP 108/69; PULSE 73; RESP 18; TEMP 96.6; O2SAT 100
[2017-01-23] MEDS: DOCUSATE SODIUM 100 MG CAP PO SCH (19:46)
[2017-01-23 20:01] VITALS: BP 131/80; PULSE 87; RESP 16; TEMP 97.1; O2SAT 97
[2017-01-24] VITALS: BP 106/63; PULSE 87; RESP 16; TEMP 97.4; O2SAT 99
[2017-01-24] MEDS: KETOROLAC TROMETHAMINE 30 MG/ML (IVP) VIAL IVP SCH (04:11)
[2017-01-24] MEDS: ACETAMINOPHEN/HYDROcodone 325 MG/5 MG TAB PO PRN ×3 (04:11→12:15)
[2017-01-24] MEDS: PCA - TOTAL MG MORPHINE DELIVERED PER SHIFT SCH (05:34)
--- NOTE | 2017-01-24 07:21 | PD.ORT.PN ---
Subjective Post Op Day #: 2 Pain Scale: 2 Subjective Remarks great Range of Motion good Objective Vitals Vital Signs Date Time Temp Pulse Resp B/P (MAP) Pulse Ox O2 Delivery O2 Flow Rate FiO2 01/24/17 00:00 97.4 87 16 106/63 (77) 99 01/23/17 21:14 21 01/23/17 20:47 18 01/23/17 20:47 18 01/23/17 20:01 97.1 87 16 131/80 (97) 97 01/23/17 16:00 96.6 73 18 108/69 (82) 100 01/23/17 14:10 16 01/23/17 12:00 96.7 76 18 105/66 (79) 98 01/23/17 08:00 96.4 72 18 115/78 (90) 96 I/O 01/23/17 01/23/17 01/23/17 01/24/17 01/24/17 01/24/17 07:00 15:00 23:00 07:00 15:00 23:00 Intake Total 2720 ml 600 ml 960 ml 600 ml Output Total 70 ml Balance 2650 ml 600 ml 960 ml 600 ml Intake Oral 360 ml 600 ml 960 ml 600 ml IV Total 2360 ml Drainage Total 70 ml # Voids 3 3 2 2 # Bowel Movements 0 0 Result Diagram: 01/23/1744201/23/17442 Objective Remarks comfortable. freely moving knee, moves toes well primapore dressing clean and dry Assessment & Plan Ortho Post Op Day #: 2 Problem List: Assessment and Plan doing well post TKA right DC home with C Rx for xeralto 10mg daily x 14days and hydrocodone 5/325 . will see me in 10 days, has apptt. Koby Romero MD Jan 24, 2017 07:21
[2017-01-24 08:00] VITALS: BP 118/80; PULSE 79; RESP 19; TEMP 96.2; O2SAT 99
[2017-01-24] MEDS: DOCUSATE SODIUM 100 MG CAP PO SCH (08:06)
[2017-01-24] MEDS: SODIUM CHLORIDE 0.9% FLUSH 5 ML FLUSH IVF SCH (08:06)
[2017-01-24] MEDS: CELECOXIB 200 MG CAP PO SCH (08:06)
[2017-01-24] MEDS: RIVAROXABAN 10 MG TAB PO SCH (08:06)
[2017-01-24] MEDS: ACETAMINOPHEN 1000 MG/100 ML VIAL IV SCH (08:07)
[2017-01-24 12:12] VITALS: BP 119/76; PULSE 84; RESP 18; TEMP 96.3; O2SAT 99
--- NOTE | 2017-01-28 10:35 | MD ---
cc: ROZ THOMPSON ADMISSION DATE: 01/22/2017 DISCHARGE DATE: 01/24/2017 ADMISSION DIAGNOSIS Osteoarthritis right knee DISCHARGE DIAGNOSIS Osteoarthritis right knee HISTORY History consisted of a long duration of symptoms with both knees, not relieved by nonoperative measures anymore prompting a left total knee replacement performed about seven weeks ago and now underwent right total knee replacement on the day of admission. Preop workup was satisfactory. Postop course consisted of prophylactic antibiotics for less than 24 hours, pain management protocol to include nerve block periarticular injections, Tramadol, hydrocodone, Celebrex and IV Tylenol. The patient is doing very well. He is ambulating full weightbearing with a walker. No drainage from the incision. He has a good range of motion. He is discharged with instructions for continuing exercise at home, weightbearing as tolerated with a walker, prescription for Xarelto 10 mg daily for two weeks and hydrocodone 5/325 two tablets q.i.d. p.r.n. for pain #90. He has an appointment to see me in 10 days for followup. Discharge condition stable. Prognosis, good. MD RENE Calvo/ADAM /7:22 AM /10:29 AM
== END 2017-01-24 12:56 | disposition home health service (06) | DRG 470 ==
LOC: HSDI 05:48 → N06A 14:39
PROVIDERS: ADMIT Orthopaedic Surgery; ATTEND Orthopaedic Surgery
PROC: 0SRC0J9 Replacement of Right Knee Joint with Synthetic Substitute, Cemented, Open Approach (ICD-10-PCS; principal; 2017-01-22 07:21)
DX: M17.11 Unilateral primary osteoarthritis, right knee (principal); I10 Essential (primary) hypertension; E78.5 Hyperlipidemia, unspecified
CPT/HCPCS: 73560; 80048; 85014; 85018; 86850; 86900; 86901; 94150; C1776; C9290; J0131; J0171; J0690; J0735; J1885; J2250; J2270; J2405; J2795; J3010; J3260; J3370; J7030; J7040; J7050; J7120